=== PATIENT | female | born 1990 | race Hispanic/Latino ===

== ENCOUNTER 2019-01-25 23:43 | Emergency (ER) | payer SELFPAY ==
[2019-01-26 00:01] LABS: Urine Specific Gravity 1.015 (1.005-1.030)
[2019-01-26 00:05] LABS: Urine Blood 3+ (NEG); Urine Glucose NEGATIVE (NEG); Urine Protein NEGATIVE (NEG); Urine Specific Gravity 1.015 (1.005-1.030); Urine pH 8.5 (5.0-7.0)
[2019-01-26] MEDS ORDERED: IBUPROFEN 200 MG TAB PO ONE (00:43)
[2019-01-26] MEDS ORDERED: IBUPROFEN 400 MG TAB ONE (00:43)
[2019-01-26] MEDS ORDERED: TETANUS & DIPHTHERIA TOX,ADULT 0.5 ML VIAL ONE (00:44)
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
[2019-01-26] MEDS ORDERED: HYDROCODONE/APAP 10/325 TAB ONE (01:54)
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
== END 2019-01-26 02:13 | disposition home or self-care (01) ==
LOC: ER 23:43
DX: R07.89 Other chest pain (principal); V49.9XXA Car occupant (driver) (passenger) injured in unspecified traffic accident, initial encounter; Z88.0 Allergy status to penicillin; Z88.1 Allergy status to other antibiotic agents
CPT/HCPCS: 71045; 81003; 81025; 90714; 99284